=== PATIENT | male | born 1980 | race African-American/Black ===

== ENCOUNTER 2022-06-06 13:43 | Emergency (ER) | payer MEDICAID ==
[~2022-06-06] VITALS: Ht 175.3 cm; Wt 75.3 kg
[2022-06-06 13:54] VITALS: BP 115/64
[2022-06-06] MEDS ORDERED: NACL 0.9% 1,000 ML IV ONE ×2 (14:45→15:30)
[2022-06-06] MEDS ORDERED: ONDANSETRON 4 MG/2 ML VIAL IVP ONE (14:55)
[2022-06-06] MEDS ORDERED: DICYCLOMINE HCL LIQUID 20 MG, ALUMINUM HYD/MAG/SIMETHICONE 30 ML, LIDOCAINE VISCOUS 2% ... PO ONE ×3 (14:55)
[2022-06-06 14:58] LABS: BASOPHILS % (AUTO) 0.1 % (0.0-2.0); HEMATOCRIT 46.8 % (36-52); HEMOGLOBIN 15.6 g/dL (12.0-18.0); LYMPHOCYTES # (AUTO) 0.9 K/uL (2.0-11.5); LYMPHOCYTES % (AUTO) 3.8 % (20.5-51.1); MEAN CORPUSCULAR HEMOGLOBIN 32 pg (27-31); MEAN CORPUSCULAR HGB CONC 33 g/dL (33-37); MEAN CORPUSCULAR VOLUME 95.2 fL (80-94); MONOCYTES # (AUTO) 1.3 K/uL (0.8-1.0); MONOCYTES % (AUTO) 5.7 % (1.7-9.3); NEUTROPHILS # (AUTO) 20.5 K/uL (1.8-7.7); NEUTROPHILS % (AUTO) 90.4 % (42.2-75.2); PLATELET COUNT (AUTO) 340 K/uL (140-450); RED BLOOD CELL COUNT(AUTO) 4.92 MIL/uL (4.20-6.10); RED CELL DISTRIBUTION WIDTH 13.4 % (11.6-13.7); WHITE BLOOD COUNT (AUTO) 22.7 K/uL (4.8-10.8)
[2022-06-06] MEDS ORDERED: ALUMINUM HYD/MAG/SIMETHICONE 30 ML UDC ONE (15:02)
[2022-06-06] MEDS ORDERED: DICYCLOMINE HCL LIQUID 10 MG/5 ML UDC ONE (15:02)
--- NOTE | 2022-06-06 15:13 | NUR ---
Note undone in EDM - 06/06/22 at 1516 by [facility] 41 y/o male bib self, c/o n/v, abd pain that started 2 days ago. pt states he thinks it may be a flareup from hernia. pt admits to smoking marijuana 2 days ago prior to s/s starting. a&ox4, ambulates with steady gait. currently tolerating po ice chips. denies fever, chills, diarrhea, sob, cough, sore throat. ermd made aware of pt pmh: hernies, gastroparesis nka med: zofran (no relief)
--- NOTE | 2022-06-06 15:16 | NUR ---
41 y/o male bib self, c/o n/v, abd pain that started 2 days ago. pt states he thinks it may be a flareup from hernia. pt admits to smoking marijuana 2 days ago prior to s/s starting. a&ox4, ambulates with steady gait. currently tolerating po ice chips. denies fever, chills, diarrhea, sob, cough, sore throat. ermd made aware of pt pmh: hernia, gastroparesis nka med: zofran (no relief)
[2022-06-06 15:18] LABS: ALBUMIN 4.4 g/dL (3.4-5.0); ANION GAP 14.9 (8-16); CARBON DIOXIDE 27.7 mmol/L (21-32); CREATININE 1.8 mg/dL (0.6-1.3); POTASSIUM 4.6 mmol/L (3.5-5.1); TOTAL BILIRUBIN 0.8 mg/dL (0.0-1.0)
[2022-06-06] MEDS ORDERED: METOCLOPRAMIDE 10 MG/2 ML INJ VIAL IVP ONE (15:25)
[2022-06-06] MEDS ORDERED: diphenhydrAMINE 50 MG/ML VIAL IVP ONE (15:25)
--- NOTE | 2022-06-06 15:53 | NUR ---
pt taken to ct via wheelchair
--- NOTE | 2022-06-06 16:18 | NUR ---
pt returned from ct at this time
--- NOTE | 2022-06-06 16:40 | NUR ---
susan and flu swabbed at this time
[2022-06-06] MEDS ORDERED: FAMO-90 PO (16:56)
[2022-06-06] MEDS ORDERED: METO-485 PO (16:56)
[2022-06-06] MEDS ORDERED: DIPH25TA53 PO (16:56)
[2022-06-06 17:58] VITALS: BP 115/64
--- NOTE | 2022-06-06 17:58 | NUR ---
Patient discharged with v/s stable. Written and verbal after care instructions given and explained. Patient alert, oriented and verbalized understanding of instructions. Ambulatory with steady gait. All questions addressed prior to discharge. ID band removed. Patient advised to follow up with PMD. Rx of famotidine, benadryl, reglan (sent) given. Patient educated on indication of medication including possible reaction and side effects. Opportunity to ask questions provided and answered.
== END 2022-06-06 17:58 | disposition home or self-care (01) ==
LOC: MED 13:43
DX: R11.2 Nausea with vomiting, unspecified (principal); Z20.822 Contact with and (suspected) exposure to COVID-19; R10.9 Unspecified abdominal pain; F17.200 Nicotine dependence, unspecified, uncomplicated; F12.90 Cannabis use, unspecified, uncomplicated; Z98.890 Other specified postprocedural states; Z71.6 Tobacco abuse counseling
CPT/HCPCS: 36415; 74177; 80053; 83690; 85025; 87426; 87804; 96361; 96374; 96375; 99284; J1200; J2405; J2765; J7030; Q0092